=== PATIENT | male | born 1975 | race Caucasian/White ===

== ENCOUNTER 2017-04-30 07:21 | Emergency (ER) | payer BC ==
[2017-04-30] MEDS ORDERED: Amoxicillin/Clavulanate K 875-125 MG Tab ONE (07:30)
--- NOTE | 2017-04-30 07:49 | EDM.PDOC ---
ED HPI GENERAL MEDICAL PROBLEM - General Stated Complaint: POSSIBLE PNUEMONIA Time Seen by Provider: 04/30/17 07:30 Source of Information: Reports: Patient History Limitations: Reports: No Limitations - History of Present Illness INITIAL COMMENTS - FREE TEXT/NARRATIVE: According to patient he has been having mild cough on and off for past 3 days now. No fever or chills. No wheezing or shortness of breath. He claims he has pneumonia. Sputum is scanty and greenish and thick. No nausea or vomiting. Duration: Day(s): (5) Improves with: Reports: None Worsens with: Reports: None Associated Symptoms: Reports: Cough. Denies: Confusion, Chest Pain, Fever/ Chills, Nausea/Vomiting, Rash, Shortness of Breath, Syncope, Weakness - Related Data Allergies Allergy/AdvReac Type Severity Reaction Status Date / Time No Known Allergies Allergy Verified 04/30/17 07:34 Home Meds: Home Meds Pantoprazole Sodium [Protonix] 1 tab PO DAILY 04/30/17 [History] ED ROS GENERAL - Review of Systems Review Of Systems: See Below Constitutional: Denies: Fever, Chills, Malaise HEENT: Denies: Eye Pain, Rhinitis, Throat Pain, Throat Swelling Respiratory: Reports: Cough, Sputum. Denies: Shortness of Breath, Wheezing, Pleuritic Chest Pain Cardiovascular: Denies: Chest Pain, Dyspnea on Exertion, Lightheadedness, Palpitations, Syncope Endocrine: Denies: Fatigue GI/Abdominal: Denies: Abdominal Pain, Nausea, Vomiting : Denies: Discharge, Dysuria Musculoskeletal: Denies: Joint Pain, Muscle Pain, Muscle Stiffness Skin: Denies: Bruising, Pruritis ED EXAM, GENERAL - Physical Exam Exam: See Below Exam Limited By: No Limitations General Appearance: Alert, WD/WN, No Apparent Distress Eye Exam: Bilateral Eye: EOMI, PERRL Ears: Normal External Exam, Normal Canal, Hearing Grossly Normal, Normal TMs Ear Exam: Bilateral Ear: Auricle Normal, Canal Normal, TM normal Nose: Normal Inspection, Normal Mucosa, No Blood Throat/Mouth: Normal Inspection, Normal Lips, Normal Teeth, Normal Gums, Normal Oropharynx, Normal Voice, No Airway Compromise Head: Atraumatic, Normocephalic Neck: Normal Inspection, Supple, Non-Tender, Full Range of Motion Respiratory/Chest: No Respiratory Distress, Lungs Clear, Normal Breath Sounds, No Accessory Muscle Use, Chest Non-Tender Cardiovascular: Normal Peripheral Pulses, Regular Rate, Rhythm, No Edema, No Gallop, No JVD, No Murmur, No Rub Extremities: Normal Inspection, Normal Range of Motion, Non-Tender, Normal Capillary Refill, No Pedal Edema Skin Exam: Warm, Intact Course - Vital Signs Text/Narrative:: Pt' symptoms started 5 days ago, and has slightly got worse in the past 5 days now. his vitals are stable, and his SPO2 is 97% on room air. It does appear like he has viral bronchitis. but he is concerned about pneumonia. Hence I did get CBC and CXR which are within normal limits. Pt reassured that he has bronchitis.As his white count is at 11K have empirically covered him with Augmentin 875mg BID for 10 days. Should take it's natural course of 7-10 days and resolve. Advised Robutussin DM 3-4 times daily. Steam inhalations 2-3 times daily. Rest and hydration. Return to emergency room of followup in clinic, if he starts to have high grade fever with chills. Wheezing, shortness of breath or chest discomfort or pain. Last Recorded V/S: Last Vital Signs Temp 97.4 F 04/30/17 09:48 Pulse 73 04/30/17 09:48 Resp 18 04/30/17 09:48 BP 132/61 04/30/17 09:48 Pulse Ox 96 04/30/17 09:48 - Orders/Labs/Meds Orders: Active Orders 24 hr Category Date Time Status Chest 2V [CR] Stat Exams 04/30/17 07:39 Taken Labs: Laboratory Tests 04/30/17 Range/Units 08:25 WBC 10.6 (4.0-11.0) K/uL RBC 5.34 (4.50-6.50) M/uL Hgb 15.2 (13.0-18.0) g/dL Hct 44.8 (40.0-54.0) % MCV 84 (76-96) fL MCH 28.5 (27.0-32.0) pg MCHC 33.9 (31.0-35.0) g/dL RDW 13.6 (11.0-16.0) % Plt Count 206 (150-400) K/uL MPV 9.5 (6.0-10.0) fL Neut % (Auto) 62.8 (45.0-70.0) % Lymph % (Auto) 20.0 (20.0-40.0) % Garrard % (Auto) 13.4 H (3.0-10.0) % Eos % (Auto) 3.4 (1.0-5.0) % Baso % (Auto) 0.4 (0.0-0.5) % Neut # (Auto) 6.68 (2.00-7.50) K/uL Lymph # (Auto) 2.12 (1.50-4.00) K/uL Garrard # (Auto) 1.42 H (0.20-0.80) K/uL Eos # (Auto) 0.36 (0.04-0.40) K/uL Baso # (Auto) 0.04 (0.02-0.10) K/uL Departure - Departure Time of Disposition: 09:00 Disposition: Home, Self-Care 01 Condition: Good Clinical Impression: Bronchitis - Discharge Information - Problem List & Annotations (1) Viral bronchitis SNOMED Code(s): 71759564 Code(s): J20.8 - ACUTE BRONCHITIS DUE TO OTHER SPECIFIED ORGANISMS Status: Acute Current Visit: Yes (2) Bronchitis SNOMED Code(s): 88486784 Code(s): J40 - BRONCHITIS, NOT SPECIFIED ACUTE OR CHRONIC Status: Acute - Problem List Review Problem List Initiated/Reviewed/Updated: Yes - My Orders Last 24 Hours: My Active Orders 04/30/17 07:39 Chest 2V [CR] Stat - Assessment/Plan Last 24 Hours: My Active Orders 04/30/17 07:39 Chest 2V [CR] Stat Assessment:: Bronchitis Plan: Pt reassured that he has bronchitis. Empirically covered with augmentin 875mg BID for 10 days. Should take it's natural course of 7-10 days and resolve. Advised Robutussin DM 3-4 times daily. Steam inhalations 2-3 times daily. Rest and hydration. Return to emergency room of followup in clinic, if he starts to have high grade fever with chills. Wheezing, shortness of breath or chest discomfort or pain.
--- NOTE | 2017-05-01 03:34 | CR ---
DATE OF SERVICE: 04/30/2017 CLINICAL DATA: Cough PA AND LATERAL CHEST No priors. The heart size is normal. The lungs are clear. The exam is otherwise negative. IMPRESSION: Normal exam. [id number] MTDD
== END 2017-04-30 09:15 | disposition home or self-care (01) ==
LOC: LB.ED 07:21
DX: J40 Bronchitis, not specified as acute or chronic (principal)
CPT/HCPCS: 36415; 71020; 85025; 99283; A9270